=== PATIENT | female | born 2000 | race Hispanic/Latino ===

== ENCOUNTER 2019-11-29 00:36 | Emergency (ER) | payer OTHER ==
[2019-11-29] MEDS ORDERED: traMADol HCl 50 MG TAB ONE (00:50)
[2019-11-29] MEDS ORDERED: Ibuprofen 800 MG TAB ONE (00:50)
== END 2019-11-29 01:00 | disposition home or self-care (01) ==
LOC: NAV ERS 00:36
DX: H66.41 Suppurative otitis media, unspecified, right ear (principal); H60.92 Unspecified otitis externa, left ear; I10 Essential (primary) hypertension; J45.909 Unspecified asthma, uncomplicated; F32.9 Major depressive disorder, single episode, unspecified
CPT/HCPCS: 99283